=== PATIENT | male | born 1955 | race African-American/Black ===

== ENCOUNTER 2017-11-11 14:25 | Emergency (ER) | payer OTHER ==
[2017-11-11 14:45] VITALS: BP 137/70
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
[2017-11-11] MEDS ORDERED: DIPH/PERTUSS(ACELL)/TETANUS VAC/PF 0.5 ML SYR (>=10YO) IM ONE (17:03)
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
== END 2017-11-11 17:15 | disposition home or self-care (01) ==
LOC: ER 14:25
DX: S40.021A Contusion of right upper arm, initial encounter (principal); W23.0XXA Caught, crushed, jammed, or pinched between moving objects, initial encounter; Y93.E9 Activity, other interior property and clothing maintenance; Y92.009 Unspecified place in unspecified non-institutional (private) residence as the place of occurrence of the external cause; I10 Essential (primary) hypertension; Z23 Encounter for immunization
CPT/HCPCS: 90471; 90715; 99283